=== PATIENT | male | born 1995 | race Caucasian/White ===

== ENCOUNTER 2021-02-09 11:49 | Outpatient (REF) | payer OTHER, SELFPAY ==
[2021-02-09 13:38] LABS: COVID-19 Test Negative (Negative); IDNOW Serial# 55D5AD1C
== END 2021-02-09 11:50 | disposition home or self-care (01) ==
LOC: HO.LAB 11:49
PROVIDERS: Visit Provider Internal Medicine
DX: Z20.822 Contact with and (suspected) exposure to COVID-19 (principal)
CPT/HCPCS: 36415; 87635; C9803

== ENCOUNTER 2023-05-19 20:16 | Emergency (ER) | payer OTHER, SELFPAY ==
[2023-05-19 20:25] VITALS: BP 133/87; PULSE 69; RESP 18; TEMP 36.4; O2SAT 98; BMI 33.6
--- NOTE | 2023-05-19 20:28 | ED_ITS ---
HPI - Ear Problem General Chief complaint: Ear Problems Stated complaint: ear impacted Time Seen by Provider: 05/19/23 21:19 Source: patient Mode of arrival: ambulatory Limitations: no limitations History of Present Illness HPI Narrative: Patient been complaining of wax in the left ear for 1 week tried water jet at home now does not hear much and feel clogged Related Data Previous Rx's ?Medication ?Instructions ?Recorded omeprazole magnesium 20 mg 20 mg PO DAILY #30 tabs 01/28/20 tablet,delayed release (Prilosec OTC) Allergies Allergy/AdvReac Type Severity Reaction Status Date / Time No Known Allergies Allergy Verified 05/19/23 20:27 Review of Systems Review of Systems: Yes all other systems are reviewed and are negative [facility]LY [facility] Past Medical History Medical History GERD (gastroesophageal reflux disease) Anxiety Social History Social History Advance Directives: No Advance Directives Information Provided: No Physical Exam Vital Signs: Vital Signs: Last Vital Signs Temp 97.9 F 05/19/23 22:04 Pulse 72 05/19/23 22:04 Resp 17 05/19/23 22:04 BP 121/77 05/19/23 22:04 Pulse Ox 97 05/19/23 22:04 O2 Del Method Room Air 05/19/23 22:04 BMI result Body Mass Index 33.6 Appearance: Alert. Oriented X3. No acute distress. ENT: Pharynx normal. Oral Mucosa moist impacted wax in the left ear Neck: Normal inspection. Neck supple. CVS: Normal heart rate and rhythm. Pulses normal. Respiratory: No respiratory distress. Course Course Course Narrative: This is a Rapid Medical Examination (RME) in triage, full HPI, ROS, assessment and plan per primary provider in the Main ED. 27 yo male presenting for left ear cerumen impaction x3 days with new onset hearing loss today after trying to get the wax out with drops/spray which made it worse. plan for cerumenolytic and irrigation/curette removal. Procedures Ear Wax Removal Left Ear: Results: Re-examined: cerumen removed completely TM Examination: TM(s) intact, normal appearance Ear Canal Exam: atraumatic Patient Tolerated Procedure: well Complications: no problems Technique: ear canal irrigated Discharge Plan Discharge Clinical Impression: Excessive cerumen in left ear canal Patient Disposition: Home, Self-Care Instructions: Carbamide Peroxide (Into the ear) Additional Instructions: You had wax in the left ear which was removed Local care as advised Prescriptions: No Action omeprazole magnesium [Prilosec OTC] 20 mg tablet,delayed release (DR/EC) 20 mg PO DAILY Qty: 30 0RF Interventions: ED Discharge Assessment Last Done: 05/19/23 22:04 Discharge Date/Time: 05/19/23 22:05 Print Language: Yi
[2023-05-19 21:16] VITALS: BP 121/77; PULSE 72; RESP 17; TEMP 36.6; O2SAT 97
[2023-05-19 22:04] VITALS: BP 121/77; PULSE 72; RESP 17; TEMP 36.6; O2SAT 97
== END 2023-05-19 22:05 | disposition home or self-care (01) ==
PROVIDERS: Emergency Provider Internal Medicine
DX: H61.22 Impacted cerumen, left ear (principal)
CPT/HCPCS: 69209; 99282; 99283; 99284

== ENCOUNTER 2023-08-06 22:21 | Emergency (ER) | payer OTHER, SELFPAY ==
[2023-08-06 22:22] VITALS: BP 128/77; PULSE 73; RESP 18; TEMP 37.2; O2SAT 99; BMI 33.6
[2023-08-06 22:45] LABS: MANUAL DIFF FLAG NO
[2023-08-06 22:46] LABS: Basophils Absolute Auto 0.1 X10*3/uL (0.0-0.2); Basophils Percent Auto 0.6 % (0-2); Eosinophils Absolute Auto 0.1 X10*3/uL (0.0-0.4); Eosinophils Percent Auto 1.2 % (0-4); Hemoglobin 15.5 g/dl (14.0-18.0); Imm Gran Abs Auto 0.02 X10*3/uL (0.00-0.03); Imm Gran Pct Auto 0.2 % (0.0-0.4); Lymphocytes Percent Auto 34.8 % (20-40); Mean Corpuscular HGB Conc 35.2 g/dl (31.0-36.0); Mean Corpuscular Hemoglobin 29.1 pg (27.0-33.0); Mean Corpuscular Volume 82.6 fL (80.0-98.0); Mean Platelet Volume 12.3 fL (9.4-12.4); Monocytes Absolute Auto 0.5 X10*3/uL (0.1-1.2); Monocytes Percent Auto 5.7 % (2-11); Neutrophils Absolute Auto 4.9 x10*3/uL (2.0-8.3); Neutrophils Percent Auto 57.5 % (45-73); Platelet Count 193 X10*3/uL (160-400); Red Blood Count 5.33 X10*6/uL (4.60-5.80); Red Cell Distribution Width 12.5 % (11.0-16.0); White Blood Count 8.5 X10*3/uL (4.8-10.8)
[2023-08-06 22:47] LABS: Appearance Urine Turbid; Color Urine Yellow; Glucose Urine UA Negative (Negative); Leukocyte Esterase Urine Negative (Negative); Nitrite Urine Negative (Negative); Urine Blood Negative (Negative); Urine Ketones Negative (Negative); Urine Protein Negative (Neg-Trace)
[2023-08-06 22:50] LABS: Bacteria Urine None Seen (None Seen); Hyaline Casts Urine 0-2 /LPF (0-2); RBC Urine 0-2 /HPF (0-2); Squamous Epithelial Cell Urine 0-2 /HPF (0-2); WBC Urine 0-5 /HPF (0-5)
[2023-08-06 23:03] LABS: Alanine Aminotransferase 54 U/L (0-40); Albumin Level 4.4 g/dL (3.5-5.0); Alkaline Phosphatase 87 U/L (39-117); Anion Gap 14 (12-20); Aspartate Amino Transferase 25 U/L (5-37); Bilirubin Total 1.6 mg/dL (0.0-1.0); Blood Urea Nitrogen 17 mg/dL (9-16); Calcium 8.9 mg/dL (8.4-10.2); Carbon Dioxide 28 mmol/L (22-29); Chloride 105 mmol/L (96-108); Creatinine Clr Calc Pharmacy 112.7; Estimated Glomerular Filt Rate > 60; Glucose Random 99 mg/dL (60-115); Lipase 20 U/L (8-78); Potassium 3.7 mmol/L (3.3-5.1); Sodium 143 mmol/L (135-145); Total Protein 7.4 g/dL (6.5-8.0)
[2023-08-07 01:21] VITALS: BP 119/75; PULSE 69; RESP 18; TEMP 36.6; O2SAT 95
--- NOTE | 2023-08-07 02:07 | ED.ABDPAIN ---
HPI - Abdominal Pain General Chief Complaint: Abdominal Pain Stated Complaint: Pelvic pain Time Seen by Provider: 08/07/23 02:03 Source: patient Mode of arrival: ambulatory Limitations: no limitations History of Present Illness ED Provider: perez HPI narrative: Patient no significant past medical history noticed pain in the left groin area for last 5 days after playing soccer no direct injury no testicular pain no urinary complaints patient increases on ambulation no diarrhea no nausea no vomiting no blood in the stool Related Data Previous Rx's ?Medication ?Instructions ?Recorded omeprazole magnesium 20 mg 20 mg PO DAILY #30 tabs 01/28/20 tablet,delayed release (Prilosec OTC) ibuprofen 600 mg tablet 600 mg PO Q6H PRN fever or pain 08/07/23 #30 tabs Allergies Allergy/AdvReac Type Severity Reaction Status Date / Time No Known Allergies Allergy Verified 08/06/23 22:27 Review of Systems Review of Systems Yes all other systems are reviewed and are negative PMFSH Past Medical History Medical History GERD (gastroesophageal reflux disease) Anxiety Social History Social History Advance Directives: No Advance Directives Information Provided: No Physical Exam ED Vital Signs: Vital Signs - 24 hr 08/06/23 22:22 08/07/23 01:21 08/07/23 02:30 Temperature 98.9 F 97.8 F 97.8 F Pulse Rate 73 69 69 Respiratory Rate 18 18 18 Blood Pressure 128/77 119/75 119/75 Pulse Oximetry 99 95 95 Oxygen Delivery Method Room Air Room Air Room Air BMI result Body Mass Index 33.6 Appearance: Alert. Oriented X3. No acute distress. CVS: Normal heart rate and rhythm. Pulses normal. Respiratory: No respiratory distress. Equal air entry bilateral, no wheezing/rales/rhonchi Abdomen: Soft and nontender. Bowel sounds are present, no mass palpable, no CVA tenderness : Normal testicle and scrotum Skin: Skin warm and dry. Normal skin color. Normal skin turgor. Extremities: No lower extremity edema. No calf tenderness tenderness left groin area Neuro: Oriented X 3. Medical Decision Making Medical Decision Making [facility] Narrative: Patient's clinically of the left groin strain labs are stable urine negative Differential Diagnosis Differential Diagnoses: The differential diagnosis associated with the presentation includes UTI/kidney stone/groin pain/diverticulitis Lab Data 08/06/23 22:37 08/06/23 22:37 Labs: Lab Results 08/06/23 Range/Units 22:37 WBC 8.5 (4.8-10.8) X10*3/uL RBC 5.33 (4.60-5.80) X10*6/uL Hgb 15.5 (14.0-18.0) g/dl Hct 44.0 (42.0-52.0) % MCV 82.6 (80.0-98.0) fL MCH 29.1 (27.0-33.0) pg MCHC 35.2 (31.0-36.0) g/dl RDW 12.5 (11.0-16.0) % Plt Count 193 (160-400) X10*3/uL MPV 12.3 (9.4-12.4) fL Immature Gran % (Auto) 0.2 (0.0-0.4) % Neut % (Auto) 57.5 (45-73) % Lymph % (Auto) 34.8 (20-40) % [place] % (Auto) 5.7 (2-11) % Eos % (Auto) 1.2 (0-4) % Baso % (Auto) 0.6 (0-2) % Lymph # (Auto) 3.0 (1.2-4.9) X10*3/uL [place]pson # (Auto) 0.5 (0.1-1.2) X10*3/uL Eos # (Auto) 0.1 (0.0-0.4) X10*3/uL Baso # (Auto) 0.1 (0.0-0.2) X10*3/uL Abs Immat Gran (auto) 0.02 (0.00-0.03) X10*3/uL Absolute Neuts (auto) 4.9 (2.0-8.3) x10*3/uL Absolute Nucleated RBC 0.000 (0.0-0.012) X10*3/uL Nucleated RBC % (auto) 0.0 (0.0-0.2) /100WBC Sodium 143 (135-145) mmol/L Potassium 3.7 (3.3-5.1) mmol/L Chloride 105 (96-108) mmol/L Carbon Dioxide 28 (22-29) mmol/L Anion Gap 14 (12-20) BUN 17 H (9-16) mg/dL Creatinine 1.03 (0.5-1.4) mg/dL Estim Creat Clear Calc 112.7 Estimated GFR > 60 Random Glucose 99 (60-115) mg/dL Calcium 8.9 (8.4-10.2) mg/dL Total Bilirubin 1.6 H (0.0-1.0) mg/dL AST 25 (5-37) U/L ALT 54 H (0-40) U/L Alkaline Phosphatase 87 (39-117) U/L Total Protein 7.4 (6.5-8.0) g/dL Albumin 4.4 (3.5-5.0) g/dL Lipase 20 (8-78) U/L Urine Color Yellow Urine Appearance Turbid Urine pH 8.0 (5.0-9.0) Ur Specific [place] 1.020 (1.005-1.025) Urine Protein Negative (Neg-Trace) mg/dL Urine Glucose (UA) Negative (Negative) mg/dL Urine Ketones Negative (Negative) mg/dL Urine Blood Negative (Negative) Urine Nitrite Negative (Negative) Ur Leukocyte Esterase Negative (Negative) Urine RBC 0-2 (0-2) /HPF Urine WBC 0-5 (0-5) /HPF Ur Squamous Epith Cells 0-2 (0-2) /HPF Urine Bacteria None Seen (None Seen) Hyaline Casts 0-2 (0-2) /LPF Medications Administered Discontinued Medications Generic Name Dose Route Start Last Admin Trade Name Freq PRN Reason Stop Dose Admin Ibuprofen 600 mg 08/07/23 02:07 08/07/23 02:26 Ibuprofen 600 Mg Tablet PO 08/07/23 02:08 600 mg ONCE ONE Administration Discharge Plan Discharge Clinical Impression: Groin strain Patient Disposition: Home, Self-Care Instructions: Groin Strain (ED) Additional Instructions: Your pain in left groin is likely from strain Take ibuprofen for pain Follow with PCP as needed Prescriptions: New ibuprofen 600 mg tablet 600 mg PO Q6H PRN (Reason: fever or pain) Qty: 30 0RF No Action omeprazole magnesium [Prilosec OTC] 20 mg tablet,delayed release (/EC) 20 mg PO DAILY Qty: 30 0RF Interventions: ED Discharge Assessment Last Done: 08/07/23 02:30 Discharge Date/Time: 08/07/23 02:32 Print Language: [place]
[2023-08-07] MEDS: Ibuprofen 600 MG TABLET PO (02:26)
[2023-08-07 02:30] VITALS: BP 119/75; PULSE 69; RESP 18; TEMP 36.6; O2SAT 95
== END 2023-08-07 02:32 | disposition home or self-care (01) ==
PROVIDERS: Emergency Provider Internal Medicine
DX: S39.011A Strain of muscle, fascia and tendon of abdomen, initial encounter (principal); X58.XXXA Exposure to other specified factors, initial encounter; R10.2 Pelvic and perineal pain; Y93.66 Activity, soccer; Y92.9 Unspecified place or not applicable; Y99.9 Unspecified external cause status
CPT/HCPCS: 36415; 80053; 81001; 83690; 85025; 99283

== ENCOUNTER 2023-09-20 15:50 | Outpatient (AMB) | payer OTHER, SELFPAY ==
[2023-09-20 16:05] VITALS: BP 122/60; PULSE 75; O2SAT 97; BMI 34.4
--- NOTE | 2023-09-20 16:05 | A.OFFPC_ITS ---
Vital Signs 09/20/23 16:05 Height 5 ft 6 in Weight 213 lb BMI 34.4 BP 122/60 Blood Pressure Location Lt brachial Position Sitting Pulse 75 Pulse Source Pulse Oximeter Pulse Oximetry (%) 97 Oxygen Delivery Method Room Air Intake Visit Reasons: follow up Hatch Tender Required: No Allergies No Known Allergies Allergy (Verified 09/20/23 16:06) Medication List - Last Reconciled 09/20/23 by Martha Farias MD Tobacco use date assessed: 09/20/23 Dental Screening Dental Screen Date: 09/20/23 HPI follow up HPI Details 28-year-old obese male with GERD coming in for follow-up. Last seen in 2019. Review of the notes was recently in the hospital in 10/28/2023 for left groin pain diagnosis of groin strain. coming in for fungal infection feet. [facility]LY [facility] Medical History GERD (gastroesophageal reflux disease) Anxiety Social History (Updated 09/20/23 @ 16:42 by Martha Farias MD) Housing: Apartment Alcohol intake: former Years Smoked: stopped 15 years service: No Current occupational status: employed Cognitive needs: No Hearing needs: No Vision needs: No Questionnaire AUDIT C Alcohol Use Questionnaire (AUDIT-C) 1. How often do you have a drink containing alcohol?: Never 3. How often do you have six or more drinks on one occasion?: Never Total Score: 0 JEREMIAH-7 AMB Questionnaire JEREMIAH-7 Date JEREMIAH - 7 assessed: 09/20/23 Source: Developed by Drs. Lionel Rodriguez, Genia Linn, Jeronimo Singletary and colleagues, with an educational alonso from [facility]. Physical exam (Primary Care) Vital Signs: Last Vital Signs Pulse 75 09/20/23 16:05 BP 122/60 09/20/23 16:05 Pulse Ox 97 09/20/23 16:05 Oxygen Delivery Method Room Air 09/20/23 16:05 BMI result Body Mass Index 34.4 Tobacco/Smoking Status: Tobacco use Status Tobacco use date assessed 09/20/23 09/20/23 16:07 Const General: alert; No acute distress Eyes Conjunctivae: conjunctivae normal Resp Auscultation: clear to auscultation bilaterally Cardio Rate: regular rate Rhythm: regular rhythm GI Inspection: Yes normal to inspection Extrem General: Yes normal to inspection and No edema Assessment and Plan Assessment & Plan (1) Obesity (BMI 30-39.9): Code(s): E66.9 - Obesity, unspecified Plan: Diet and exercise (2) LFT elevation: Code(s): R79.89 - Other specified abnormal findings of blood chemistry Plan: Advised to get repeat blood work hepatitis profile and ultrasound of the abdomen (3) GERD (gastroesophageal reflux disease): Code(s): K21.9 - Gastro-esophageal reflux disease without esophagitis Plan: Avoid the foods that causes that usually spicy foods, tomato products, juices, coffee, soda and foods that your sensitive to. After eating do not lie down, allow 3-4 hours before in lie down. And keep the head of bed above 30 degrees to avoid the acid from going up. (4) Groin strain: Code(s): S76.219A - Strain of adductor muscle, fascia and tendon of unspecified thigh, initial encounter Plan: Keep active and offered physical therapy (5) Tinea pedis: Code(s): B35.3 - Tinea pedis (6) Onychomycosis: Code(s): B35.1 - Tinea unguium Orders: Orders Hepatitis B,C Profile Today R79.89 - Other specified abnormal findings of blood chemistry Lipid Panel Today E66.9 - Obesity, unspecified, E78.00 - Pure hypercholesterolemia, unspecified Comprehensive Met. Panel Today R79.89 - Other specified abnormal findings of blood chemistry US abdomen complete Today R79.89 - Other specified abnormal findings of blood chemistry Ferritin Today R79.89 - Other specified abnormal findings of blood chemistry Complete Blood Count Auto Diff Today E66.9 - Obesity, unspecified Free T4 (Free Thyroxine) Today E66.9 - Obesity, unspecified Thyroid Stimulating Hormone Today E66.9 - Obesity, unspecified Vitamin B12 and Folate Today E66.9 - Obesity, unspecified Medications: New ciclopirox 8% 1 appl topical BEDTIME 4 weeks 6.6 mL 1RF B35.1 - Tinea unguium clotrimazole 1% 1 appl topical BID 4 weeks 45 grams 0RF B35.3 - Tinea pedis Coding Level of Care Code Est Pt Level 4 (92711) Diagnoses Obesity (BMI 30-39.9) E66.9 LFT elevation R79.89 GERD (gastroesophageal reflux disease) K21.9 Groin strain S76.219A Tinea pedis B35.3 Onychomycosis B35.1
== END 2023-09-20 16:56 | disposition home or self-care (01) ==
PROVIDERS: PCP Internal Medicine; Visit Provider Internal Medicine
DX: K21.9 Gastro-esophageal reflux disease without esophagitis (principal); E66.9 Obesity, unspecified; Z68.34 Body mass index [BMI] 34.0-34.9, adult; R79.89 Other specified abnormal findings of blood chemistry; S76.219A Strain of adductor muscle, fascia and tendon of unspecified thigh, initial encounter; B35.3 Tinea pedis; B35.1 Tinea unguium
CPT/HCPCS: 99214

== ENCOUNTER 2023-09-22 09:05 | Outpatient (REF) | payer OTHER, SELFPAY ==
[2023-09-22 09:19] LABS: MANUAL DIFF FLAG NO
[2023-09-22 09:53] LABS: Basophils Percent Auto 0.5 % (0-2); Eosinophils Absolute Auto 0.1 X10*3/uL (0.0-0.4); Eosinophils Percent Auto 1.5 % (0-4); Hematocrit 47.5 % (42.0-52.0); Hemoglobin 16.4 g/dl (14.0-18.0); Imm Gran Abs Auto 0.02 X10*3/uL (0.00-0.03); Imm Gran Pct Auto 0.3 % (0.0-0.4); Lymphocytes Absolute Auto 2.2 X10*3/uL (1.2-4.9); Lymphocytes Percent Auto 32.7 % (20-40); Mean Corpuscular HGB Conc 34.5 g/dl (31.0-36.0); Mean Corpuscular Hemoglobin 28.5 pg (27.0-33.0); Mean Corpuscular Volume 82.5 fL (80.0-98.0); Mean Platelet Volume 12.8 fL (9.4-12.4); Monocytes Absolute Auto 0.5 X10*3/uL (0.1-1.2); Monocytes Percent Auto 8.1 % (2-11); Neutrophils Absolute Auto 3.8 x10*3/uL (2.0-8.3); Neutrophils Percent Auto 56.9 % (45-73); Platelet Count 205 X10*3/uL (160-400); Red Blood Count 5.76 X10*6/uL (4.60-5.80); Red Cell Distribution Width 12.5 % (11.0-16.0); White Blood Count 6.7 X10*3/uL (4.8-10.8)
[2023-09-22 10:26] LABS: Alanine Aminotransferase 73 U/L (0-40); Albumin Level 4.4 g/dL (3.5-5.0); Alkaline Phosphatase 86 U/L (39-117); Anion Gap 13 (12-20); Aspartate Amino Transferase 40 U/L (5-37); Bilirubin Total 3.9 mg/dL (0.0-1.0); Blood Urea Nitrogen 15 mg/dL (9-16); Carbon Dioxide 26 mmol/L (22-29); Chloride 105 mmol/L (96-108); Cholesterol 159 mg/dL (<200); Estimated Glomerular Filt Rate > 60; Glucose Random 91 mg/dL (60-115); HDL Cholesterol 46 mg/dL (>40); LDL Cholesterol Calculated 97 mg/dL (<100); Potassium 3.8 mmol/L (3.3-5.1); Sodium 140 mmol/L (135-145); Total Protein 7.4 g/dL (6.5-8.0); Triglycerides 84 mg/dL (<150)
[2023-09-22 10:42] LABS: HBS Num1 0.26 mIU/mL (0-7.99); HBc Num1 0.08 S/CO (0.00-0.79); HBsAGNum1 0.27 S/CO (0.00-0.99); Hepatitis B Core Antibody Nonreactive (Nonreactive); Hepatitis B Surface Antigen Negative (Negative); ~HepC Num1 0.16 S/CO (0.00-0.79); ~Hepatitis B Surface Antibody NONREACTIVE (Nonreactive); ~Hepatitis C Antibody Nonreactive (Nonreactive)
[2023-09-22 10:50] LABS: Ferritin 125 ng/mL (20-250); Free T4 (Free Thyroxine) 1.13 ng/dL (0.71-1.85); Thyroid Stimulating Hormone 1.61 uIU/mL (0.32-4.0)
[2023-09-22 10:54] LABS: Folate 12.9 ng/mL (> or = 4.0); Vitamin B12 435 pg/mL (200-900)
== END 2023-09-22 09:06 | disposition home or self-care (01) ==
LOC: HO.LAB 09:05
PROVIDERS: PCP Internal Medicine; Visit Provider Internal Medicine
DX: R79.89 Other specified abnormal findings of blood chemistry (principal); E78.00 Pure hypercholesterolemia, unspecified; E66.9 Obesity, unspecified
CPT/HCPCS: 36415; 80053; 80061; 82607; 82728; 82746; 84439; 84443; 85025; 86704; 86706; 86803; 87340

== ENCOUNTER 2023-09-30 09:52 | Outpatient (REF) | payer OTHER, SELFPAY ==
--- NOTE | ~2023-09-30 | US_ITS ---
EXAMINATION: US ABDOMEN COMPLETE CLINICAL INFORMATION: Elevated LFTs. COMPARISON: Abdominal ultrasound 09/06/2017 TECHNIQUE: Real-time imaging of the abdominal viscera. FINDINGS: PANCREAS: Pancreas is largely obscured by overlying bowel gas. ABDOMINAL AORTA: Proximal segment of the liver is unremarkable, mid and distal portions are not well visualized. INFERIOR VENA CAVA: Visualized portions are normal. LIVER: The liver is normal in size. The liver contour is normal. Increased hepatic echogenicity suggesting hepatic steatosis. No focal hepatic lesion. There is no intrahepatic biliary duct dilatation seen. GALLBLADDER: The gallbladder is physiologically distended without evidence of stones, sludge, wall thickening or pericholecystic fluid. Intraluminal gallbladder polyp measuring up to 5 mm. Sonographic Gordon sign is negative. COMMON BILE DUCT: Normal in caliber measuring 0.3 cm in diameter. RIGHT KIDNEY: Normal. No hydronephrosis. No renal calculi or focal parenchymal lesions. The kidney measures 11.3 cm in maximum dimension. LEFT KIDNEY: Normal. No hydronephrosis. No renal calculi or focal parenchymal lesions. The kidney measures 10.2 cm in maximum dimension. SPLEEN: The spleen is borderline enlarged measuring 13.3 cm in maximum dimension. FREE FLUID: None. US/US abdomen complete IMPRESSION: 1. Increased hepatic echogenicity suggesting hepatic steatosis. 2. Intraluminal gallbladder polyp measuring up to 5 mm. 3. Borderline splenomegaly measuring up to 13.3 cm. Electronically signed by: Hanna Tellez MD 10/08/2023 02:03 PM EDT
== END 2023-09-30 09:53 | disposition home or self-care (01) ==
LOC: HO.HMGCX 09:52
PROVIDERS: PCP Internal Medicine; Visit Provider Internal Medicine
DX: R79.89 Other specified abnormal findings of blood chemistry (principal)
CPT/HCPCS: 76700

== ENCOUNTER 2023-11-02 14:24 | Outpatient (AMB) | payer OTHER, SELFPAY ==
[2023-11-02 14:30] VITALS: BMI 31.8
--- NOTE | 2023-11-02 14:30 | A.OFFVIS_ITS ---
VS Expanded 11/02/23 14:30 Height 5 ft 6 in Weight 197 lb 5.019 oz BMI 31.8 Intake Visit Reasons: Fatty liver, not elsewhere classified/LVM Allergies No Known Allergies Allergy (Verified 09/20/23 16:06) Nutrition Presentation Details: Pt presents for MNT for fatty liver. Pt reports he has started to make dietary modifications, exercising, working on weight loss. BS Monitoring Most Recent Diabetes Results: Cholesterol 159 mg/dL (<200) 09/22/23 HDL Cholesterol 46 mg/dL (>40) 09/22/23 Triglycerides 84 mg/dL (<150) 09/22/23 Creatinine 0.93 mg/dL (0.5-1.4) 09/22/23 Blood Urea Nitrogen 15 mg/dL (9-16) 09/22/23 Sodium 140 mmol/L (135-145) 09/22/23 Potassium 3.8 mmol/L (3.3-5.1) 09/22/23 Chloride 105 mmol/L (96-108) 09/22/23 Carbon Dioxide 26 mmol/L (22-29) 09/22/23 Calcium 9.0 mg/dL (8.4-10.2) 09/22/23 AST 40 U/L (5-37) H 09/22/23 ALT 73 U/L (0-40) H 09/22/23 Total Protein 7.4 g/dL (6.5-8.0) 09/22/23 Albumin 4.4 g/dL (3.5-5.0) 09/22/23 MKW-Cwxblel-Rm.Jeor Equation Height: 5 ft 6 in Weight: 197 lb Resting Metabolic Rate: 1797.83 Calculated Activity Level: Moderate Activity Calories Needed to Maintain Weight: 2786.64 Diagnosis Nutrition problem #1: food nutri know defi As related to (etiology) #1: diagnosis As evidenced by (sign/symptom) #1: knowledge deficit of diet [facility] Medical History GERD (gastroesophageal reflux disease) Anxiety Social History (Updated 09/20/23 @ 16:42 by Martha Farias MD) Housing: Apartment Alcohol intake: former Years Smoked: stopped 15 years service: No Current occupational status: employed Cognitive needs: No Hearing needs: No Vision needs: No Assessment & Plan Assessment & Plan (1) Hepatic steatosis: Comment: Code(s): K76.0 - Fatty (change of) liver, not elsewhere classified Category: Medical Plan: Wt: 89 Kg ( 10/31 ) Est kcal needs as per MSJ: 2800 (40% carb, 30% protein/fat) Est fluid needs as per 25-30 ml/d: 2700 Est prot per day as per 1 g/kg bw: 89 Recommend fiber intake : 8-10 g per day and gradually increase to 25-28 g per day for women and 35-38 g for men or as tolerated Recommend sodium intake per day : less than 2000 mg Educated patient on: ( R = reviewed V = verbalizes understanding N/R = needs review N/A = not applicable * Food sources of carbohydrate, adequate serving sizes and its role in various health conditions: R * Differences between complex carbohydrates a simple carbohydrates, role of fiber in diet: R V N/R * Lean protein sources of foods: R V NR * Differences between types of fats and role in diet (mono on saturated fat fatty acids, saturated fatty acids, trans fats): R * Food sources of sodium in salt and healthy modifications for heart health in kidney health: R V R/V * Vitamins and minerals: R V N/R * Healthy plate method concept: R V N/R * Physical activity: Benefits a precaution: R V Patient Instructions: gradually increase fiber in your diet, and increase water Reduce on simple sugars and saturated fats (pastries/cookies, fried starches) see meal plan low in fat and high in fiber as reference Coding Level of Care Code Nutr Indiv Intake (14769) Diagnoses Hepatic steatosis K76.0 Time Spent (min) 30
[2023-11-02 15:02] VITALS: BMI 31.8
== END 2023-11-02 15:29 | disposition home or self-care (01) ==
PROVIDERS: PCP Internal Medicine; Visit Provider Dietitian, Registered
DX: K76.0 Fatty (change of) liver, not elsewhere classified (principal)

== ENCOUNTER → 2023-11-02 14:24 | Outpatient (BNVA) | payer OTHER, SELFPAY | PROVIDERS: PCP Internal Medicine; Visit Provider Dietitian, Registered | DX: K76.0 Fatty (change of) liver, not elsewhere classified (principal); Z71.3 Dietary counseling and surveillance | CPT/HCPCS: 97802 ==

== ENCOUNTER 2023-11-15 16:08 | Outpatient (AMB) | payer OTHER, SELFPAY ==
--- NOTE | 2023-11-15 16:25 | A.OFFPC_ITS ---
Vital Signs 11/15/23 16:28 Height 5 ft 6 in Weight 187 lb 2 oz BMI 30.2 BP 100/68 Blood Pressure Location Lt brachial Position Sitting Pulse 78 Pulse Source Pulse Oximeter Pulse Oximetry (%) 98 Oxygen Delivery Method Room Air Intake Visit Reasons: physical Intake Note: Patient is here today for a physical. Financial Institution Manager Required: No Environmental Engineering Assistant: Not Required per policy Accompanied by: Self / Same As Patient Allergies No Known Allergies Allergy (Verified 11/15/23 16:28) Tobacco use date assessed: 11/15/23 Dental Screening Dental Screen Date: 09/20/23 HPI physical HPI Details 28-year-old obese male(noted 10 lb weigh t loss) with liver function elevation GERD coming in for physical exam last seen in 09/27/2023. Ultrasound done of the liver showing hepatic steatosis gallbladder polyp 5 mm borderline splenomegaly. occ nausea, PFSH Medical History (Updated 11/15/23 @ 16:52 by Martha Farias MD) LFT elevation GERD (gastroesophageal reflux disease) Anxiety Surgical History (Updated 11/15/23 @ 16:32 by PRANAV Stanton) No pertinent past surgical history Social History (Updated 11/15/23 @ 16:51 by Martha Farias MD) Housing: Apartment Alcohol intake: former Comment: stopped 2016 Patient Tobacco Use Status: Former Tobacco user Years Smoked: stopped 15 years e-Cigarette/Vaping Use: Never Used Second Hand Smoke Exposure: Yes service: No Current occupational status: employed Cognitive needs: No Hearing needs: No Vision needs: No Questionnaire PHQ-9 Over the last 2 weeks, how often have you been bothered by any of the following problems? 1. Little interest or pleasure in doing things: not at all 2. Feeling down, depressed, or hopeless: several days 3. Trouble falling or staying asleep, or sleeping too much: not at all 4. Feeling tired or having little energy: several days 5. Poor appetite or overeating: several days 6. Feeling bad about yourself - or that you are a failure or have let yourself or your family down: not at all 7. Trouble concentrating on things, such as reading the newspaper or watching television: not at all 8. Moving or speaking so slowly that other people could have noticed. Or the opposite - being so fidgety or restless that you have been moving around a lot more than usual: not at all 9. Thoughts that you would be better off or of hurting yourself in some way: not at all Total score: 3 Depression Screening Interpretation: Positive Depression Screening Done: Yes Source: Developed by Drs. Lionel Rodriguez, Genia Linn, Jeronimo Singletary and colleagues, with an educational alonso from [employer]. Thrive Questionnaire Date Thrive assessed: 11/15/23 I am a: Patient What is your living situation today?: I have a steady place to live Within the past 12 months, did the food you bought not last and you didn't have the money to get more?: I choose not to answer this question Within the past 12 months, did you worry whether your food would run out before you got money to buy more?: I choose not to answer this question Do you have trouble paying for medicines?: No Do you have trouble getting transportation to medical appointments?: No Do you have trouble paying your heating and electricity bill?: I choose not to answer this question Do you have trouble taking care of your child, family member or friend?: No Do you have trouble with day-to-day activities such as bathing, preparing meals, shopping, managing finances, etc.?: No Are you currently unemployed and looking for a job?: No Are you interested in more education?: No Please select the resources that you would like help with: None Currently or been in a relationship where the following occur: No concerns reported THRIVE Score: 0 AUDIT C Alcohol Use Questionnaire (AUDIT-C) 1. How often do you have a drink containing alcohol?: Never Total Score: 0 JEREMIAH-7 AMB Questionnaire JEREMIAH-7 Date JEREMIAH - 7 assessed: 11/15/23 Feeling nervous, anxious, or on edge: 0 = Not at all Not being able to stop or control worryin = Not at all Worrying too much about different things: 0 = Not at all Trouble relaxin = Not at all Being so restless that it is hard to sit still: 0 = Not at all Becoming easily annoyed or irritable: 1 = Several days Feeling afraid as if something awful might happen: 0 = Not at all Total JEREMIAH-7 score (0-4 normal; 5-9 mild; 10-14 moderate; 15-21 severe): 1 Source: Developed by Drs. Lionel Rodriguez, Genia Linn, Jeronimo Singletary and colleagues, with an educational alonso from [employer]. Review of Systems Const Denies poor appetite and Denies weakness Eyes Denies no additional complaints ENT Reports Normal hearing present, Denies dizziness, Denies nasal congestion, Denies tinnitus and Denies sore throat Card Denies chest pain, Denies syncope, Denies rapid heart rate and Denies dyspnea Resp Denies cough and Denies dyspnea GI Denies change in stool character, Reports constipation, Denies diarrhea, Denies nausea and Denies vomiting Denies dysuria and Denies urinary frequency Neuro Reports Normal hearing present, Denies confusion, Denies dizziness, Denies syncope and Denies weakness Psych Denies confusion Physical exam (Primary Care) Vital Signs: Last Vital Signs Pulse 78 11/15/23 16:28 BP 100/68 11/15/23 16:28 Pulse Ox 98 11/15/23 16:28 Oxygen Delivery Method Room Air 11/15/23 16:28 BMI result Body Mass Index 30.2 Tobacco/Smoking Status: Tobacco use Status Tobacco use date assessed 11/15/23 11/15/23 16:34 Patient Tobacco Use Status Former Tobacco user 11/15/23 16:34 e-Cigarette/Vaping Use Never Used 11/15/23 16:34 PHQ-9: PHQ-9 Score PHQ-9: Total score 3 11/15/23 16:45 Depression Screening Interpretation: Positive Thrive Assessment: Date of Thrive Assessment Date Thrive assessed 11/15/23 11/15/23 16:34 Currently or been in a relationship where the following occur: No concerns reported Const General: No confusion Orientation/consciousness: No confusion HENMT Head: Yes normocephalic Ears: external ears normal and TM's normal bilaterally Face and sinus: Yes normal facial exam Mouth: moist mucous membranes Throat: Yes tonsils normal Eyes Conjunctivae: conjunctivae normal Pupils: Equal, round and reactive pupils present and Pupil accommodation reflex normal Direct Ophthalmoscopy: normal light reflex Neck Neck: No lymphadenopathy Thyroid: Thyroid normal Chest Chest palpation & inspection: normal inspection of the chest Resp Effort & Inspection: normal respiratory effort and no audible wheezes Auscultation: clear to auscultation bilaterally, no crackles, no wheezes and lung sounds not diminished Cardio Rate: regular rate Rhythm: regular rhythm Peripheral pulses: radial pulses present and dorsalis pedis present GI Palpation (GI): no masses Auscultation: normal bowel sounds and normoactive bowel sounds Rectal Exam - Male: Yes deferred Skin General skin exam: no rashes or lesions noted Rashes: no rashes Neuro General: No confusion Cranial nerves: Yes Equal, round and reactive pupils present and Yes Normal hearing present Cognition (Neuro): normal cognition Gait exam (Neuro): Normal gait present Motor exam (neuro): 5/5 motor strength present throughout Deep tendon reflexes (DTR's): Right brachioradialis reflex intensity grade: 2+, Left brachioradialis reflex intensity grade: 2+, Right patellar reflex intensity grade: 2+ and Left patellar reflex intensity grade: 2+ Extrem General: No edema Office Procedures Flu Questionnaire Does the patient have a severe egg allergy?: No Does the patient have severe life threatening allergies?: No Does the patient have a fever or illness today?: No Has the patient ever had Guillain-Hingham Syndrome?: No Has the patient ever had any past reaction to a flu shot?: No Immunizations Fluarix Triv [id number] (PF) 45 mcg (15 mcg x 3)/0.5 mL IM syringe Performing Provider: Martha Farias MD [facility] Administered by: Eri Escoto LPN on 11/15/23 16:44 Dose Route Admin Location Dispensed Lot Number Expiration Date NDC Real Estate Administrator 0.5 mL IM Left Deltoid 0.5 mL [id number] 08/06/24 [id number] CO-Value VIS Given Date VIS Provided VIS Publication Date 11/15/23 Single Vaccine 20 Eligibility Eligibility Date Funding Source Not [facility] Eligible 11/15/23 Private Coding Level of Care Code Est Pt Prev Care [id number]([id number]) Diagnoses Annual physical exam Z00.00 Obesity (BMI 30-39.9) E66.9 Gastroesophageal reflux disease without esophagitis K21.9 Esophagitis presence: without esophagitis Hepatic steatosis K76.0 Gallbladder polyp K82.4 Constipation K59.00 Assessment & Plan Assessment & Plan (1) Annual physical exam: Code(s): Z00.00 - Encounter for general adult medical examination without abnormal findings Category: Medical Plan: Patient is advised to eat healthy, keep well hydrated, keep active and have adequate sleep. (2) Obesity (BMI 30-39.9): Code(s): E66.9 - Obesity, unspecified Category: Medical Plan: Diet and exercise noted 10 lb weight loss. (3) GERD (gastroesophageal reflux disease): Code(s): K21.9 - Gastro-esophageal reflux disease without esophagitis Category: Medical Qualifiers: Esophagitis presence: without esophagitis Qualified Code(s): K21.9 - Gastro-esophageal reflux disease without esophagitis Plan: Avoid the foods that causes that usually spicy foods, tomato products, juices, coffee, soda and foods that your sensitive to. After eating do not lie down, allow 3-4 hours before in lie down. And keep the head of bed above 30 degrees to avoid the acid from going up. (4) Hepatic steatosis: Comment: Code(s): K76.0 - Fatty (change of) liver, not elsewhere classified Category: Medical Plan: Patient is advised referral to Gastroenterology (5) Gallbladder polyp: Comment: October 2023Increased hepatic echogenicity suggesting hepatic steatosis. 2. Intraluminal gallbladder polyp measuring up to 5 mm. 3. Borderline splenomegaly measuring up to 13.3 cm. Code(s): K82.4 - Cholesterolosis of gallbladder Category: Medical Plan: September 2023 advised repeat surveillance ultrasound 09/26/2024 (6) Constipation: Code(s): K59.00 - Constipation, unspecified Category: Medical Plan: discussed about water, eating more fiber and activity Orders: Orders Influenza [id number] Immunization Today Z23 - Encounter for immunization Comprehensive Met. Panel 6 Months K76.0 - Fatty (change of) liver, not elsewhere classified US abdomen complete 1 Year K82.4 - Cholesterolosis of gallbladder, R79.89 - Other specified abnormal findings of blood chemistry
[2023-11-15 16:28] VITALS: BP 100/68; PULSE 78; O2SAT 98; BMI 30.2
== END 2023-11-15 17:12 | disposition home or self-care (01) ==
PROVIDERS: PCP Internal Medicine; Visit Provider Internal Medicine
DX: Z00.00 Encounter for general adult medical examination without abnormal findings (principal); E66.811 Obesity, class 1; Z68.30 Body mass index [BMI] 30.0-30.9, adult; K21.9 Gastro-esophageal reflux disease without esophagitis; K76.0 Fatty (change of) liver, not elsewhere classified; K82.4 Cholesterolosis of gallbladder; K59.00 Constipation, unspecified; Z23 Encounter for immunization

== ENCOUNTER → 2023-11-15 16:08 | Outpatient (BNVA) | payer OTHER, SELFPAY | PROVIDERS: PCP Internal Medicine; Visit Provider Internal Medicine | DX: Z00.00 Encounter for general adult medical examination without abnormal findings (principal); Z23 Encounter for immunization; E66.9 Obesity, unspecified; K21.9 Gastro-esophageal reflux disease without esophagitis; K76.0 Fatty (change of) liver, not elsewhere classified; K82.4 Cholesterolosis of gallbladder; K59.00 Constipation, unspecified | CPT/HCPCS: 90471; 90656; 96127; 99395 ==

== ENCOUNTER 2023-12-28 12:52 | Outpatient (AMB) | payer OTHER, SELFPAY ==
[2023-12-28 12:55] VITALS: BP 124/70; PULSE 76; O2SAT 98
--- NOTE | 2023-12-28 12:55 | A.OFFPC_ITS ---
Vital Signs 12/28/23 12:55 Height 5 ft 6 in Weight 186 lb BMI 30.0 BP 124/70 Blood Pressure Location Lt brachial Position Sitting Pulse 76 Pulse Source Pulse Oximeter Pulse Oximetry (%) 98 Oxygen Delivery Method Room Air Int[place] [facility] [place] Back and LT side pain Allergies No Known Allergies Allergy (Verified 12/28/23 12:56) Tobacco use date assessed: 11/15/23 Dental Screening Dental Screen Date: 09/20/23 [place] [facility] [place] Back and LT side pain HPI Details 28-year-old obese male with GERD hepatic steatosis gallbladder polyp constipation last seen for physical exam in November 14. Patient is here for an acute problem. in the gym. com[plains of L flank pain- went to [facility] and work up done- CT scan done last week negative tiny fat containig hernia advised treamtent for musculoskeletal pain PFSH Medical History (Updated 12/28/23 @ 13:06 by Martha Farias MD) LFT elevation GERD (gastroesophageal reflux disease) Anxiety Surgical History (Updated 11/15/23 @ 16:32 by PRANAV Stanton) No pertinent past surgical history Social History (Updated 11/15/23 @ 16:51 by Martha Farias MD) Housing: Apartment Alcohol intake: former Comment: stopped 2016 Patient Tobacco Use Status: Former Tobacco user Tobacco use type: Cigarette Years Smoked: stopped 15 years e-Cigarette/Vaping Use: Never Used Second Hand Smoke Exposure: Yes service: No Current occupational status: employed Cognitive needs: No Hearing needs: No Vision needs: No Questionnaire PHQ-9 Over the last 2 weeks, how often have you been bothered by any of the following problems? 1. Little interest or pleasure in doing things: not at all 2. Feeling down, depressed, or hopeless: several days 3. Trouble falling or staying asleep, or sleeping too much: not at all 4. Feeling tired or having little energy: several days 5. Poor appetite or overeating: several days 6. Feeling bad about yourself - or that you are a failure or have let yourself or your family down: not at all 7. Trouble concentrating on things, such as reading the newspaper or watching television: not at all 8. Moving or speaking so slowly that other people could have noticed. Or the opposite - being so fidgety or restless that you have been moving around a lot more than usual: not at all 9. Thoughts that you would be better off or of hurting yourself in some way: not at all Total score: 3 Depression Screening Interpretation: Positive Depression Screening Done: Yes Source: Developed by Drs. Lionel Rodriguez, Genia Linn, Jeronimo Singletary and colleagues, with an educational alonso from [employer]. Thrive Questionnaire Date Thrive assessed: 11/15/23 I am a: Patient What is your living situation today?: I have a steady place to live Within the past 12 months, did the food you bought not last and you didn't have the money to get more?: I choose not to answer this question Within the past 12 months, did you worry whether your food would run out before you got money to buy more?: I choose not to answer this question Do you have trouble paying for medicines?: No Do you have trouble getting transportation to medical appointments?: No Do you have trouble paying your heating and electricity bill?: I choose not to answer this question Do you have trouble taking care of your child, family member or friend?: No Do you have trouble with day-to-day activities such as bathing, preparing meals, shopping, managing finances, etc.?: No Are you currently unemployed and looking for a job?: No Are you interested in more education?: No Please select the resources that you would like help with: None Currently or been in a relationship where the following occur: No concerns reported THRIVE Score: 0 AUDIT C Alcohol Use Questionnaire (AUDIT-C) 1. How often do you have a drink containing alcohol?: Never Total Score: 0 JEREMIAH-7 AMB Questionnaire JEREMIAH-7 Date JEREMIAH - 7 assessed: 11/15/23 Source: Developed by Drs. Lionel Rodriguez, Genia Linn, Jeronimo Singletary and colleagues, with an educational alonso from [employer]. Physical exam (Primary Care) Vital Signs: Last Vital Signs Pulse 76 12/28/23 12:55 BP 124/70 12/28/23 12:55 Pulse Ox 98 12/28/23 12:55 Oxygen Delivery Method Room Air 12/28/23 12:55 BMI result Body Mass Index 30.0 Tobacco/Smoking Status: Tobacco use Status Tobacco use date assessed 11/15/23 12/28/23 12:58 Patient Tobacco Use Status Former Tobacco user 12/28/23 12:58 Tobacco use type Cigarette 12/28/23 12:58 e-Cigarette/Vaping Use Never Used 12/28/23 12:58 PHQ-9: PHQ-9 Score PHQ-9: Total score 3 12/28/23 12:58 Depression Screening Interpretation: Positive Thrive Assessment: Date of Thrive Assessment Date Thrive assessed 11/15/23 12/28/23 12:58 Currently or been in a relationship where the following occur: No concerns reported Const General: alert; No acute distress Eyes Conjunctivae: conjunctivae normal Resp Auscultation: clear to auscultation bilaterally Cardio Rate: regular rate Rhythm: regular rhythm GI Inspection: Yes normal to inspection Extrem General: Yes normal to inspection and No edema Coding Level of Care Code Est Pt Level 3 (32068) Diagnoses Obesity (BMI 30-39.9) E66.9 Left flank pain R10.9 Assessment & Plan Assessment & Plan (1) Obesity (BMI 30-39.9): Code(s): E66.9 - Obesity, unspecified Category: Medical Plan: Diet and exercise (2) Left flank pain: Code(s): R10.9 - Unspecified abdominal pain Category: Medical Plan: musculoskeletal and heat , exercises . For now no heavy lifting
== END 2023-12-28 13:16 | disposition home or self-care (01) ==
PROVIDERS: PCP Internal Medicine; Visit Provider Internal Medicine
DX: R10.9 Unspecified abdominal pain (principal); E66.9 Obesity, unspecified; Z68.30 Body mass index [BMI] 30.0-30.9, adult

== ENCOUNTER → 2023-12-28 12:52 | Outpatient (BNVA) | payer OTHER, SELFPAY | PROVIDERS: PCP Internal Medicine; Visit Provider Internal Medicine | DX: E66.9 Obesity, unspecified (principal); R10.9 Unspecified abdominal pain | CPT/HCPCS: 96127; 99212 ==

== ENCOUNTER 2024-10-29 13:03 | Outpatient (AMB) | payer SELFPAY ==
[2024-10-29 13:08] VITALS: BP 116/84; PULSE 78; TEMP 36.3; O2SAT 97; BMI 32.1
--- NOTE | 2024-10-29 13:08 | A.OFFPC_ITS ---
Vital Signs 10/29/24 13:08 Height 5 ft 6 in Weight 199 lb 2 oz BMI 32.1 BP 116/84 Blood Pressure Location Lt brachial Position Sitting Pulse 78 Pulse Source Pulse Oximeter Temp 97.3 F Temp Source Temporal Artery Scan Pulse Oximetry (%) 97 Oxygen Delivery Method Room Air Intake Visit Reasons: [facility] 10/21 back pain Allergies No Known Allergies Allergy (Verified 10/29/24 13:11) Tobacco use date assessed: 10/29/24 Dental Screening Dental Screen Date: 10/29/24 Did you have a dental visit in the last 12 months?: No Did you have a dental problem in the last 6 months where you did not have access to dental care?: No Was dental information given to patient?: Patient has dentist HPI Teena 10/21 back pain HPI Details Was in [employer], playing basketball L flank pain in tuesday 1 weeks ago- has been out of work for 1 week, states has forms has been off work October 22-2024 - was wating to g back to work tomorrow PFSH Medical History LFT elevation GERD (gastroesophageal reflux disease) Anxiety Surgical History No pertinent past surgical history Social History Housing: Apartment Alcohol intake: former Comment: stopped 2015 Patient Tobacco Use Status: Former Tobacco user Tobacco use type: Cigarette Years Smoked: stopped 15 years e-Cigarette/Vaping Use: Never Used Second Hand Smoke Exposure: Yes service: No Current occupational status: employed Cognitive needs: No Hearing needs: No Vision needs: No Questionnaire PHQ-9 Over the last 2 weeks, how often have you been bothered by any of the following problems? 1. Little interest or pleasure in doing things: not at all 2. Feeling down, depressed, or hopeless: not at all 3. Trouble falling or staying asleep, or sleeping too much: not at all 4. Feeling tired or having little energy: several days 5. Poor appetite or overeating: not at all 6. Feeling bad about yourself - or that you are a failure or have let yourself or your family down: not at all 7. Trouble concentrating on things, such as reading the newspaper or watching television: not at all 8. Moving or speaking so slowly that other people could have noticed. Or the opposite - being so fidgety or restless that you have been moving around a lot more than usual: not at all 9. Thoughts that you would be better off or of hurting yourself in some way: not at all Total score: 1 Source: Developed by Drs. Lionel Rodriguez, Genia Linn, Jeronimo Singletary and colleagues, with an educational alonso from [employer]. Thrive Questionnaire Date Thrive assessed: 10/29/24 I am a: Patient What is your living situation today?: I have a steady place to live Within the past 12 months, did the food you bought not last and you didn't have the money to get more?: Sometimes True Within the past 12 months, did you worry whether your food would run out before you got money to buy more?: Sometimes True Do you have trouble paying for medicines?: No Do you have trouble getting transportation to medical appointments?: No Do you have trouble paying your heating and electricity bill?: No Do you have trouble taking care of your child, family member or friend?: No Do you have trouble with day-to-day activities such as bathing, preparing meals, shopping, managing finances, etc.?: No Are you currently unemployed and looking for a job?: No Are you interested in more education?: No Please select the resources that you would like help with: None Currently or been in a relationship where the following occur: I choose not to answer THRIVE Score: 2 AUDIT C Alcohol Use Questionnaire (AUDIT-C) 1. How often do you have a drink containing alcohol?: Never 3. How often do you have six or more drinks on one occasion?: Never Total Score: 0 JEREMIAH-7 AMB Questionnaire JEREMIAH-7 Date JEREMIAH - 7 assessed: 10/29/24 Feeling nervous, anxious, or on edge: 0 = Not at all Not being able to stop or control worryin = Not at all Worrying too much about different things: 0 = Not at all Trouble relaxin = Not at all Being so restless that it is hard to sit still: 0 = Not at all Becoming easily annoyed or irritable: 0 = Not at all Feeling afraid as if something awful might happen: 0 = Not at all Total JEREMIAH-7 score (0-4 normal; 5-9 mild; 10-14 moderate; 15-21 severe): 0 Source: Developed by Drs. Lionel Rodriguez, Genia Linn, Jeronimo Singletary and colleagues, with an educational alonso from [employer]. Physical exam (Primary Care) Vital Signs: Last Vital Signs Temp 97.3 F 10/29/24 13:08 Pulse 78 10/29/24 13:08 BP 116/84 10/29/24 13:08 Pulse Ox 97 10/29/24 13:08 Oxygen Delivery Method Room Air 10/29/24 13:08 BMI result Body Mass Index 32.1 Tobacco/Smoking Status: Tobacco use Status Tobacco use date assessed 10/29/24 10/29/24 13:11 Patient Tobacco Use Status Former Tobacco user 10/29/24 13:11 Tobacco use type Cigarette 10/29/24 13:11 e-Cigarette/Vaping Use Never Used 10/29/24 13:11 PHQ-9: PHQ-9 Score PHQ-9: Total score 1 10/29/24 13:37 Thrive Assessment: Date of Thrive Assessment Date Thrive assessed 10/29/24 10/29/24 13:11 Currently or been in a relationship where the following occur: I choose not to answer Const General: alert; No acute distress Eyes Conjunctivae: conjunctivae normal Resp Auscultation: clear to auscultation bilaterally Cardio Rate: regular rate Rhythm: regular rhythm GI Inspection: Yes normal to inspection Extrem General: Yes normal to inspection and No edema Coding Level of Care Code Est Pt Level 4 (66505) Diagnoses Obesity (BMI 30-39.9) E66.9 Gastroesophageal reflux disease without esophagitis K21.9 Esophagitis presence: without esophagitis Hepatic steatosis K76.0 Gallbladder polyp K82.4 Low back pain M54.50 Assessment & Plan Assessment & Plan (1) Obesity (BMI 30-39.9): Code(s): E66.9 - Obesity, unspecified Category: Medical Plan: Diet and exercise (2) GERD (gastroesophageal reflux disease): Code(s): K21.9 - Gastro-esophageal reflux disease without esophagitis Category: Medical Qualifiers: Esophagitis presence: without esophagitis Qualified Code(s): K21.9 - Gastro-esophageal reflux disease without esophagitis Plan: Avoid the foods that causes that usually spicy foods, tomato products, juices, coffee, soda and foods that your sensitive to. After eating do not lie down, allow 3-4 hours before in lie down. And keep the head of bed above 30 degrees to avoid the acid from going up. (3) Hepatic steatosis: Comment: Code(s): K76.0 - Fatty (change of) liver, not elsewhere classified Category: Medical Plan: Low-fat diet and exercise (4) Gallbladder polyp: Comment: October 2023Increased hepatic echogenicity suggesting hepatic steatosis. 2. Intraluminal gallbladder polyp measuring up to 5 mm. 3. Borderline splenomegaly measuring up to 13.3 cm. Code(s): K82.4 - Cholesterolosis of gallbladder Category: Medical Plan: Advised to get a repeat ultrasound (5) Low back pain: Code(s): M54.50 - Low back pain, unspecified Category: Medical Plan: need note to fax back Plan History of Present Illness The patient is a 29-year-old male presenting with an acute problem related to musculoskeletal back pain. The back pain began after playing basketball, where he played 12 games and pulled his back during the last game. The pain was severe enough to prevent him from getting out of bed and resulted in him being out of w ork for a week. The patient has a history of obesity, with a recent weight gain of 13 pounds since December. He was previously diagnosed with hepatic steatosis and gallbladder polyp, and his last blood work in September showed elevated liver function tests with normal cholesterol levels. The patient also has a history of gastroesophageal reflux disease (GERD) and was advised to follow a low-fat diet and exercise regimen. He plans to restart his diet to address his weight gain and improve his liver condition. In January, the patient visited a pipe fittings molder for onychomycosis and was prescribed Formula 7. Health Maintenance - Diet and exercise plan for weight management and GERD control - Scheduled ultrasound in November for hepatic steatosis follow-up Social History - Exercise: Engages in basketball, recently played 12 games leading to back injury - Weight management: Plans to restart diet to address weight gain Review of Systems - Musculoskeletal: Reports severe back pain preventing mobility, now improved - Gastrointestinal: Reports history of GERD - Dermatological: Reports onychomycosis Physical Exam - Musculoskeletal: Muscle strength and joint function assessed through resist ance and mainspring torque tester tests Results - Labs: Elevated liver function tests, normal cholesterol (September 2023) Plan Patient was informed and verbally consented to the use of an ambient scribe for clinic note documentation during this visit. 1. Musculoskeletal Back Pain The patient experienced musculoskeletal back pain after playing basketball, which was severe enough to prevent mobility and required a week off work. He was prescribed Motrin for pain management and advised to monitor symptoms. 2. Obesity The patient has a history of obesity with a recent weight gain of 13 pounds sin ce December. He plans to restart a diet and exercise regimen to address this issue. 3. Hepatic Steatosis The patient was previously diagnosed with hepatic steatosis, with elevated liver function tests noted in September. A follow-up ultrasound is scheduled for November to monitor the condition. 4. Gastroesophageal Reflux Disease (Gerd) The patient has a history of GERD and was advised to follow a low-fat diet and exercise regimen to manage symptoms. 5. Onychomycosis The patient was treated for onychomycosis with Formula 7 following a podiatry visit in January. Discussion Notes I discussed with the patient the management of his musculoskeletal back pain, emphasizing the importance of rest and the use of Motrin for pain relief. We also reviewed his weight management plan, including dietary changes and exercise to address obesity and improve hepatic steatosis. The patient was informed about the upcoming ultrasound for hepatic steatosis monitoring and the need to adhere to the GERD management plan. Patient Instructions - Take Motrin as prescribed for back pain. - Follow a low-fat diet and exercise regularly to manage weight and GERD symptoms. - Attend the scheduled ultrasound in November for hepatic steatosis follow-up.
--- OUTSIDE RECORDS SUMMARY | 2024-10-29 15:27 | XMS_ITS | Clinical Summary ---
Demographics Address [address] [place] [phone] Home Phone Preferred Language en Marital Status Mu-Ism Affiliation Unknown Race Other Race Ethnic Group or
== END 2024-10-29 13:44 | disposition home or self-care (01) ==
LOC: HO.HMCH 13:04
PROVIDERS: PCP Internal Medicine; Visit Provider Internal Medicine
DX: K21.9 Gastro-esophageal reflux disease without esophagitis (principal); E66.9 Obesity, unspecified; Z68.32 Body mass index [BMI] 32.0-32.9, adult; K76.0 Fatty (change of) liver, not elsewhere classified; K82.4 Cholesterolosis of gallbladder; M54.50 Low back pain, unspecified

== ENCOUNTER → 2024-10-29 13:03 | Outpatient (BNVA) | payer SELFPAY | PROVIDERS: PCP Internal Medicine; Visit Provider Internal Medicine | DX: K21.9 Gastro-esophageal reflux disease without esophagitis (principal); R10.9 Unspecified abdominal pain; E66.9 Obesity, unspecified; K76.0 Fatty (change of) liver, not elsewhere classified; K82.4 Cholesterolosis of gallbladder; M54.50 Low back pain, unspecified; M54.9 Dorsalgia, unspecified; B35.1 Tinea unguium; Z68.32 Body mass index [BMI] 32.0-32.9, adult | CPT/HCPCS: 96127; 99212 ==